=== PATIENT | female | born 1995 | race Caucasian/White ===

== ENCOUNTER 2021-04-06 09:53 | Emergency (ER) | payer OTHER ==
[~2021-04-06 09:53] MED LIST: K-DUR20 MEQ PO
== END 2021-04-06 10:38 | disposition home or self-care (01) ==
LOC: FER 09:53
DX: S60.445A External constriction of left ring finger, initial encounter (principal); F17.210 Nicotine dependence, cigarettes, uncomplicated; W49.04XA Ring or other jewelry causing external constriction, initial encounter; Y92.009 Unspecified place in unspecified non-institutional (private) residence as the place of occurrence of the external cause
CPT/HCPCS: 99283